=== PATIENT | male | born 1940 | race Caucasian/White ===

== ENCOUNTER 2018-09-12 05:43 | Inpatient (IN) ==
[2018-09-09 10:50] LABS: Basophils # 0.1 10*3/uL (0.0-0.2); Eosinophils # 0.3 10*3/uL (0.0-0.87); Eosinophils % 4.6 % (0.00-10.9); Hemoglobin 14.4 GM/DL (14.0-18.0); Immature Granulocytes % 0.4 %; Immature Granulocytes Absolute 0.03 #; Lymphocytes % 42.9 % (21.2-54.2); Mean Corpuscular Volume 94.1 FL (87-102); Mean Platelet Volume 10.8 FL (9.6-12.0); Monocytes % 10.5 % (1.7-12.7); Neutrophils % 40.6 % (38.7-73.9); Platelet Count 200 T/CUMM (130-400); Red Blood Count 4.78 MC/CUMM (3.8-5.5); Red Cell Distribution Width 13.3 % (9.3-17.3); White Blood Count 6.9 T/CUMM (4-12)
[2018-09-09 10:58] LABS: INR 0.9; Partial Thromboplastin Time 24.9 SECS (0-40)
[2018-09-09 11:11] LABS: Albumin 3.8 G/DL (3.4-5.0); Bilirubin,Total 0.5 MG/DL (0.2-1.0); Osmolality,Calculated 283.3 MOS/KG (273-304); Total Protein 7.1 G/DL (6.4-8.3)
[2018-09-12] MEDS ORDERED: LACTATED RINGERS 1,000 ML IV SCH (06:00)
[2018-09-12] MEDS ORDERED: ceFAZolin 1,000 MG in SYRINGE 1 EACH IV ONE (06:30)
[2018-09-12] MEDS ORDERED: VANCOMYCIN INJ 1,000 MG in SODIUM CHLORIDE 0.9% 250 ML IV ONE ×2 (06:30→18:58)
[2018-09-12] MEDS ORDERED: VANCOMYCIN 1,000 MG VIAL ONE (08:43)
[2018-09-12] MEDS ORDERED: ceFAZolin 1,000 MG VIAL ONE (08:43)
[2018-09-12] MEDS ORDERED: BACITRACIN OINT 0.9 GM PACK TOP ONE (08:57)
[2018-09-12] MEDS ORDERED: BUPIVACAINE 0.5% 50 ML VIAL ONE (09:04)
[2018-09-12] MEDS ORDERED: DEXAMETHASONE 4 MG/1 ML VIAL ONE ×2 (09:04→11:17)
[2018-09-12] MEDS ORDERED: EPINEPHrine 1 MG/ML VIAL ONE (09:04)
[2018-09-12] MEDS ORDERED: fentaNYL 100 MCG/2 ML VIAL ONE ×2 (09:05→11:17)
[2018-09-12] MEDS ORDERED: MIDAZOLAM 2 MG/2 ML VIAL ONE ×2 (09:05→11:17)
[2018-09-12] MEDS ORDERED: diphenhydrAMINE CAP 25 MG CAPSULE PO PRN (10:57)
[2018-09-12] MEDS ORDERED: MAGNESIUM HYDROXIDE SUSP 30 ML UDCUP PO PRN (10:57)
[2018-09-12] MEDS ORDERED: ONDANSETRON 4 MG/2 ML VIAL IV PRN (10:57)
[2018-09-12] MEDS ORDERED: MORPHINE 4 MG/1 ML VIAL IV PRN ×2 (10:57)
[2018-09-12] MEDS ORDERED: PROPOFOL 200 MG/20 ML VIAL IV ONE (11:16)
[2018-09-12] MEDS ORDERED: BUPIVACAINE SPINAL 0.75% 2 ML AMP SPINAL ONE (11:16)
[2018-09-12] MEDS ORDERED: TRANEXAMIC ACID 1,000 MG/10 ML VIAL ONE (11:17)
[2018-09-12] MEDS ORDERED: PHENYLEPHRINE 1 MG/10 ML SYRINGE IV ONE (11:17)
[2018-09-12] MEDS ORDERED: SODIUM CHLORIDE 0.9% 100 ML IV ONE (11:17)
[2018-09-12] MEDS ORDERED: KETOROLAC 30 MG/1 ML VIAL ONE (11:17)
[2018-09-12] MEDS ORDERED: KETAMINE 500 MG/10 ML VIAL ONE (11:17)
[2018-09-12] MEDS ORDERED: ONDANSETRON 4 MG/2 ML VIAL ONE (11:17)
[2018-09-12] MEDS ORDERED: LACTATED RINGERS 1,000 ML IV ONE (11:17)
[2018-09-12] MEDS: LACTATED RINGERS 1,000 ML IV SCH ×2 (16:08→22:24)
[2018-09-12] MEDS ORDERED: DEXTROSE 50% 25 GM/50 ML VIAL IV PRN (16:51)
[2018-09-12] MEDS ORDERED: GLUCAGON 1 MG VIAL IM PRN (16:51)
[2018-09-12] MEDS: KETOROLAC 15 MG/1 ML VIAL IV SCH ×2 (16:53→23:53)
[2018-09-12] MEDS: ACETAMINOPHEN 500 MG TABLET PO SCH ×2 (16:54→22:28)
[2018-09-12] MEDS: ceFAZolin 2,000 MG in PREMIX 1 EACH IV SCH (17:40)
[2018-09-12] MEDS: INSULIN REGULAR 100 UNIT/ML SUBCUT SCH (21:00)
[2018-09-12] MEDS: CHOLECALCIFEROL 1,000 UNIT TABLET PO SCH (22:25)
[2018-09-12] MEDS: CYANOCOBALAMIN 500 MCG TABLET PO SCH (22:25)
[2018-09-12] MEDS: ATORVASTATIN 20 MG TABLET PO SCH (22:26)
[2018-09-12] MEDS: DOCUSATE SODIUM 100 MG CAPSULE PO SCH (22:26)
[2018-09-12] MEDS: AMITRIPTYLINE 25 MG TABLET PO SCH (22:26)
[2018-09-13] MEDS: ceFAZolin 2,000 MG in PREMIX 1 EACH IV SCH (02:13)
[2018-09-13] MEDS: ACETAMINOPHEN 500 MG TABLET PO SCH ×2 (02:54→10:02)
[2018-09-13] MEDS: KETOROLAC 15 MG/1 ML VIAL IV SCH ×2 (04:21→11:25)
[2018-09-13] MEDS: FONDAPARINUX 2.5 MG/0.5 ML SYRINGE SUBCUT SCH (04:26)
[2018-09-13 05:38] LABS: Basophils % 0.1 % (0.0-0.8); Hematocrit 33.3 VOL% (42.0-52.0); Hemoglobin 10.7 GM/DL (14.0-18.0); Immature Granulocytes % 0.8 %; Immature Granulocytes Absolute 0.11 #; Lymphocytes # 1.3 10*3/uL (1.4-4.0); Lymphocytes % 9.1 % (21.2-54.2); Mean Corpuscular HGB Conc 32.1 GM/DL (32-36); Mean Corpuscular Volume 93.3 FL (87-102); Mean Platelet Volume 11.2 FL (9.6-12.0); Monocytes % 11.9 % (1.7-12.7); Neutrophils % 78.1 % (38.7-73.9); Platelet Count 162 T/CUMM (130-400); Red Blood Count 3.57 MC/CUMM (3.8-5.5); Red Cell Distribution Width 13.5 % (9.3-17.3); White Blood Count 14.6 T/CUMM (4-12)
[2018-09-13 06:17] LABS: Osmolality,Calculated 287.3 MOS/KG (273-304)
[2018-09-13] MEDS: INSULIN REGULAR 100 UNIT/ML SUBCUT SCH ×2 (09:57→11:35)
[2018-09-13] MEDS: DOCUSATE SODIUM 100 MG CAPSULE PO SCH ×2 (10:02→20:44)
[2018-09-13] MEDS: SODIUM CHLORIDE 0.9% 1,000 ML IV SCH (11:25)
[2018-09-13] MEDS ORDERED: KETOROLAC 15 MG/1 ML VIAL IV SCH (11:30)
[2018-09-13] MEDS ORDERED: TUBERCULIN SKIN TEST 0.1 ML SYRINGE INTRADERM ONE (13:20)
[2018-09-13] MEDS ORDERED: CELECOXIB 200 MG CAPSULE PO SCH (16:58)
[2018-09-13] MEDS: CHOLECALCIFEROL 1,000 UNIT TABLET PO SCH (20:44)
[2018-09-13] MEDS: ATORVASTATIN 20 MG TABLET PO SCH (20:44)
[2018-09-13] MEDS: CYANOCOBALAMIN 500 MCG TABLET PO SCH (20:44)
[2018-09-13] MEDS: CLOPIDOGREL 75 MG TABLET PO SCH (20:44)
[2018-09-13] MEDS: AMITRIPTYLINE 25 MG TABLET PO SCH (20:44)
[2018-09-13 23:23] LABS: Apearance,Urine CLEAR (Clear); Bilirubin,Urine Negative (Negative); Blood, Urine Negative (Negative); Glucose,Urine (UA) Negative (Negative); Hyaline Casts,Urine 7 /LPF (0-3); Ketones,Urine 5 mg/dL (Negative); Mucus,Urine Occasional /LPF (Occasional); Nitrite,Urine Negative (Negative); Protein,Urine Negative; RBC,Urine 6 /HPF (0-4); Squamous Epithelial Cell,Urine Occasional /HPF (0-10); Urine Color Yellow (Yellow); Urine Specific Gravity 1.029 (1.001-1.035); Urine Urobilinogen < 2.0 EU/DL (0.2-1.0); WBC,Urine 3 /HPF (0-6)
[2018-09-14] MEDS: SODIUM CHLORIDE 0.9% 1,000 ML IV SCH (00:45)
[2018-09-14 05:15] LABS: Basophils % 0.4 % (0.0-0.8); Eosinophils # 0.1 10*3/uL (0.0-0.87); Eosinophils % 1.1 % (0.00-10.9); Hematocrit 29.5 VOL% (42.0-52.0); Hemoglobin 9.7 GM/DL (14.0-18.0); Immature Granulocytes % 0.4 %; Immature Granulocytes Absolute 0.04 #; Lymphocytes # 2.6 10*3/uL (1.4-4.0); Lymphocytes % 23.3 % (21.2-54.2); Mean Corpuscular HGB Conc 32.9 GM/DL (32-36); Mean Corpuscular Volume 92.8 FL (87-102); Mean Platelet Volume 11.7 FL (9.6-12.0); Monocytes % 13.3 % (1.7-12.7); Neutrophils % 61.5 % (38.7-73.9); Platelet Count 146 T/CUMM (130-400); Red Blood Count 3.18 MC/CUMM (3.8-5.5); Red Cell Distribution Width 13.7 % (9.3-17.3); White Blood Count 11.3 T/CUMM (4-12)
[2018-09-14 05:27] LABS: Osmolality,Calculated 293.7 MOS/KG (273-304)
[2018-09-14 05:30] LABS: Risk Ratio 1.81; VLDL CHOLESTEROL 10.6 MG/DL
[2018-09-14] MEDS: FONDAPARINUX 2.5 MG/0.5 ML SYRINGE SUBCUT SCH (05:32)
[2018-09-14] MEDS: LACTATED RINGERS 1,000 ML IV SCH (08:03)
[2018-09-14] MEDS: DOCUSATE SODIUM 100 MG CAPSULE PO SCH ×2 (09:50→20:38)
[2018-09-14] MEDS: CYANOCOBALAMIN 500 MCG TABLET PO SCH (20:36)
[2018-09-14] MEDS: ATORVASTATIN 20 MG TABLET PO SCH (20:38)
[2018-09-14] MEDS: CHOLECALCIFEROL 1,000 UNIT TABLET PO SCH (20:38)
[2018-09-14] MEDS: CLOPIDOGREL 75 MG TABLET PO SCH (20:38)
[2018-09-14] MEDS: AMITRIPTYLINE 25 MG TABLET PO SCH (20:38)
[2018-09-15 03:58] LABS: Basophils # 0.1 10*3/uL (0.0-0.2); Basophils % 0.7 % (0.0-0.8); Eosinophils # 0.7 10*3/uL (0.0-0.87); Eosinophils % 5.1 % (0.00-10.9); Hematocrit 35.1 VOL% (42.0-52.0); Hemoglobin 11.4 GM/DL (14.0-18.0); Immature Granulocytes % 0.6 %; Immature Granulocytes Absolute 0.08 #; Lymphocytes # 3.3 10*3/uL (1.4-4.0); Lymphocytes % 25.7 % (21.2-54.2); Mean Corpuscular HGB Conc 32.5 GM/DL (32-36); Mean Corpuscular Volume 94.1 FL (87-102); Mean Platelet Volume 11.6 FL (9.6-12.0); Monocytes % 14.5 % (1.7-12.7); Neutrophils % 53.4 % (38.7-73.9); Platelet Count 171 T/CUMM (130-400); Red Blood Count 3.73 MC/CUMM (3.8-5.5); White Blood Count 12.9 T/CUMM (4-12)
[2018-09-15] MEDS: FONDAPARINUX 2.5 MG/0.5 ML SYRINGE SUBCUT SCH (05:16)
[2018-09-15] MEDS: DOCUSATE SODIUM 100 MG CAPSULE PO SCH (08:15)
[2018-09-15 11:49] VITALS: BP 127/64
== END 2018-09-15 14:00 | disposition swing bed (61) | DRG 470 ==
LOC: N.PREADM 05:43 → N.SDSINP 05:45 → N.3E 15:30
PROVIDERS: ADMIT Orthopaedic Surgery; ATTEND Orthopaedic Surgery

== ENCOUNTER 2019-07-26 18:04 | Inpatient (IN) ==
[2019-07-26] MEDS ORDERED: MORPHINE 4 MG/1 ML VIAL IV STA ×2 (19:15→20:04)
[2019-07-26] MEDS ORDERED: ONDANSETRON 4 MG/2 ML VIAL IV ONE (19:15)
[2019-07-26 19:40] LABS: Basophils # 0.1 10*3/uL (0.0-0.2); Basophils % 0.5 % (0.0-0.8); Eosinophils # 0.1 10*3/uL (0.0-0.87); Eosinophils % 0.8 % (0.00-10.9); Hematocrit 45.4 VOL% (42.0-52.0); Hemoglobin 14.8 GM/DL (14.0-18.0); Immature Granulocytes % 0.5 %; Immature Granulocytes Absolute 0.07 #; Lymphocytes # 1.4 10*3/uL (1.4-4.0); Mean Corpuscular HGB Conc 32.6 GM/DL (32-36); Mean Corpuscular Volume 94.8 FL (87-102); Mean Platelet Volume 10.6 FL (9.6-12.0); Monocytes % 10.5 % (1.7-12.7); Neutrophils % 76.7 % (38.7-73.9); Platelet Count 192 T/CUMM (130-400); Red Blood Count 4.79 MC/CUMM (3.8-5.5); Red Cell Distribution Width 13.2 % (9.3-17.3); White Blood Count 12.9 T/CUMM (4-12)
[2019-07-26 19:57] LABS: PT Patient Result 10.7 SECS (9.8-11.9); Partial Thromboplastin Time 27.7 SECS (23.9-33.8)
[2019-07-26 20:00] LABS: Albumin 3.6 G/DL (3.4-5.0); Bilirubin,Total 0.6 MG/DL (0.2-1.0); Calcium 8.9 MG/DL (8.5-10.1); Osmolality,Calculated 281.4 MOS/KG (273-304); Total Protein 7.1 G/DL (6.4-8.3)
[2019-07-26] MEDS: ALUM/MAG/SIMETH/LIDO VISC 1:1 30 ML BOTTLE PO STA ×2 (20:54→21:05)
[2019-07-26] MEDS ORDERED: ZALEPLON 5 MG CAPSULE PO PRN (21:03)
[2019-07-26] MEDS ORDERED: ACETAMINOPHEN 325 MG TABLET PO PRN (21:03)
[2019-07-26] MEDS ORDERED: GLUCAGON 1 MG VIAL IM PRN (21:03)
[2019-07-26] MEDS ORDERED: DEXTROSE 10% 250 ML BAG IV PRN (21:03)
[2019-07-26] MEDS: CYANOCOBALAMIN 500 MCG TABLET PO SCH (22:34)
[2019-07-26] MEDS: CHOLECALCIFEROL 1,000 UNIT TABLET PO SCH (22:34)
[2019-07-26] MEDS: ATORVASTATIN 20 MG TABLET PO SCH (22:34)
[2019-07-26] MEDS: AMITRIPTYLINE 25 MG TABLET PO SCH (22:34)
[2019-07-27] MEDS ORDERED: ceFAZolin 2,000 MG in PREMIX 1 EACH IV ONE (07:12)
[2019-07-27 08:24] LABS: Apearance,Urine CLEAR (Clear); Bilirubin,Urine Negative (Negative); Blood, Urine Negative (Negative); Glucose,Urine (UA) Negative (Negative); Ketones,Urine 5 mg/dL (Negative); Mucus,Urine Occasional /LPF (Occasional); Nitrite,Urine Negative (Negative); Protein,Urine 30 MG/DL; RBC,Urine 15 /HPF (0-4); Squamous Epithelial Cell,Urine Occasional /HPF (0-10); Urine Color Yellow (Yellow); Urine Specific Gravity 1.028 (1.001-1.035); WBC,Urine 52 /HPF (0-6)
[2019-07-27 08:51] LABS: Basophils # 0.1 10*3/uL (0.0-0.2); Basophils % 0.8 % (0.0-0.8); Eosinophils # 0.5 10*3/uL (0.0-0.87); Eosinophils % 4.5 % (0.00-10.9); Hematocrit 42.8 VOL% (42.0-52.0); Hemoglobin 13.9 GM/DL (14.0-18.0); Immature Granulocytes % 0.4 %; Immature Granulocytes Absolute 0.05 #; Lymphocytes # 2.5 10*3/uL (1.4-4.0); Mean Corpuscular HGB Conc 32.5 GM/DL (32-36); Mean Corpuscular Volume 92.8 FL (87-102); Mean Platelet Volume 11.1 FL (9.6-12.0); Monocytes % 13.3 % (1.7-12.7); Platelet Count 181 T/CUMM (130-400); Red Blood Count 4.61 MC/CUMM (3.8-5.5); Red Cell Distribution Width 13.5 % (9.3-17.3); White Blood Count 11.5 T/CUMM (4-12)
[2019-07-27] MEDS: PANTOPRAZOLE 40 MG TABLET PO SCH (08:53)
[2019-07-27 09:10] LABS: Albumin 3.4 G/DL (3.4-5.0); Bilirubin,Total 0.9 MG/DL (0.2-1.0); Calcium 8.7 MG/DL (8.5-10.1); Osmolality,Calculated 275.7 MOS/KG (273-304); Total Protein 6.8 G/DL (6.4-8.3)
[2019-07-27] MEDS ORDERED: TUBERCULIN SKIN TEST 0.1 ML SYRINGE INTRADERM ONE (10:57)
[2019-07-27] MEDS ORDERED: SUGAMMADEX 200 MG/2 ML VIAL IV ONE (12:29)
[2019-07-27] MEDS ORDERED: KETOROLAC 15 MG/1 ML VIAL IV PRN (12:45)
[2019-07-27] MEDS ORDERED: MAGNESIUM HYDROXIDE SUSP 30 ML UDCUP PO PRN (12:45)
[2019-07-27] MEDS ORDERED: LIDOCAINE 2% 5 ML VIAL ONE (12:57)
[2019-07-27] MEDS ORDERED: propofoL 200 MG/20 ML VIAL IV ONE (12:57)
[2019-07-27] MEDS ORDERED: SEVOFLURANE 1 UNIT/15 MINUTE INH ONE (12:57)
[2019-07-27] MEDS ORDERED: ROCURONIUM 100 MG/10 ML VIAL IV ONE (12:58)
[2019-07-27] MEDS ORDERED: ACETAMINOPHEN 1,000 MG/100 ML VIAL IV ONE (12:58)
[2019-07-27] MEDS ORDERED: fentaNYL 100 MCG/2 ML VIAL ONE (12:58)
[2019-07-27] MEDS ORDERED: ONDANSETRON 4 MG/2 ML VIAL ONE (12:58)
[2019-07-27] MEDS ORDERED: SUCCINYLCHOLINE 200 MG/10 ML VIAL ONE (12:58)
[2019-07-27] MEDS ORDERED: PHENYLEPHRINE 1 MG/10 ML SYRINGE IV ONE (12:58)
[2019-07-27] MEDS: LACTATED RINGERS 1,000 ML IV SCH ×2 (13:51→22:40)
[2019-07-27] MEDS: ceFAZolin 2,000 MG in PREMIX 1 EACH IV SCH (17:07)
[2019-07-27] MEDS: CLOPIDOGREL 75 MG TABLET PO SCH (20:42)
[2019-07-27] MEDS: CHOLECALCIFEROL 1,000 UNIT TABLET PO SCH (20:43)
[2019-07-27] MEDS: ATORVASTATIN 20 MG TABLET PO SCH (20:43)
[2019-07-27] MEDS: CYANOCOBALAMIN 500 MCG TABLET PO SCH (20:43)
[2019-07-27] MEDS: AMITRIPTYLINE 25 MG TABLET PO SCH (20:43)
[2019-07-27] MEDS: DOCUSATE SODIUM 100 MG CAPSULE PO SCH (20:44)
[2019-07-28] MEDS: ceFAZolin 2,000 MG in PREMIX 1 EACH IV SCH (00:35)
[2019-07-28 06:52] LABS: Basophils # 0.1 10*3/uL (0.0-0.2); Basophils % 0.6 % (0.0-0.8); Eosinophils # 0.6 10*3/uL (0.0-0.87); Eosinophils % 4.7 % (0.00-10.9); Hematocrit 40.3 VOL% (42.0-52.0); Hemoglobin 13.2 GM/DL (14.0-18.0); Immature Granulocytes % 0.3 %; Immature Granulocytes Absolute 0.04 #; Lymphocytes # 2.1 10*3/uL (1.4-4.0); Lymphocytes % 16.8 % (21.2-54.2); Mean Corpuscular HGB Conc 32.8 GM/DL (32-36); Mean Corpuscular Volume 93.1 FL (87-102); Mean Platelet Volume 10.9 FL (9.6-12.0); Monocytes % 13.3 % (1.7-12.7); Neutrophils % 64.3 % (38.7-73.9); Platelet Count 151 T/CUMM (130-400); Red Blood Count 4.33 MC/CUMM (3.8-5.5); Red Cell Distribution Width 13.3 % (9.3-17.3); White Blood Count 12.4 T/CUMM (4-12)
[2019-07-28 08:11] LABS: Calcium 8.2 MG/DL (8.5-10.1)
[2019-07-28 08:12] LABS: Osmolality,Calculated 273.8 MOS/KG (273-304)
[2019-07-28] MEDS: PANTOPRAZOLE 40 MG TABLET PO SCH (08:14)
[2019-07-28] MEDS: LACTATED RINGERS 1,000 ML IV SCH (08:15)
[2019-07-28] MEDS: DOCUSATE SODIUM 100 MG CAPSULE PO SCH ×2 (08:16→22:11)
[2019-07-28] MEDS: MORPHINE 4 MG/1 ML VIAL IV PRN (15:15)
[2019-07-28] MEDS: ONDANSETRON 4 MG/2 ML VIAL IV PRN (15:41)
[2019-07-28] MEDS: AMITRIPTYLINE 25 MG TABLET PO SCH (21:21)
[2019-07-28] MEDS: CHOLECALCIFEROL 1,000 UNIT TABLET PO SCH (21:21)
[2019-07-28] MEDS: CYANOCOBALAMIN 500 MCG TABLET PO SCH (21:21)
[2019-07-28] MEDS: CLOPIDOGREL 75 MG TABLET PO SCH (21:22)
[2019-07-28] MEDS: ATORVASTATIN 20 MG TABLET PO SCH (21:22)
[2019-07-29 06:31] LABS: Basophils # 0.1 10*3/uL (0.0-0.2); Basophils % 0.7 % (0.0-0.8); Eosinophils # 0.4 10*3/uL (0.0-0.87); Eosinophils % 3.2 % (0.00-10.9); Hematocrit 41.1 VOL% (42.0-52.0); Hemoglobin 13.1 GM/DL (14.0-18.0); Immature Granulocytes % 0.4 %; Immature Granulocytes Absolute 0.05 #; Lymphocytes # 1.6 10*3/uL (1.4-4.0); Lymphocytes % 12.7 % (21.2-54.2); Mean Corpuscular HGB Conc 31.9 GM/DL (32-36); Mean Corpuscular Volume 95.8 FL (87-102); Monocytes % 12.8 % (1.7-12.7); Neutrophils % 70.2 % (38.7-73.9); Platelet Count 163 T/CUMM (130-400); Red Blood Count 4.29 MC/CUMM (3.8-5.5); Red Cell Distribution Width 13.2 % (9.3-17.3); White Blood Count 12.2 T/CUMM (4-12)
[2019-07-29 06:52] LABS: Calcium 8.7 MG/DL (8.5-10.1)
[2019-07-29] MEDS: DOCUSATE SODIUM 100 MG CAPSULE PO SCH ×2 (08:30→21:42)
[2019-07-29] MEDS: PANTOPRAZOLE 40 MG TABLET PO SCH (08:30)
[2019-07-29] MEDS: MORPHINE 4 MG/1 ML VIAL IV PRN (13:55)
[2019-07-29] MEDS: ONDANSETRON 4 MG/2 ML VIAL IV PRN (13:55)
[2019-07-29] MEDS: ATORVASTATIN 20 MG TABLET PO SCH (21:42)
[2019-07-29] MEDS: CYANOCOBALAMIN 500 MCG TABLET PO SCH (21:42)
[2019-07-29] MEDS: CHOLECALCIFEROL 1,000 UNIT TABLET PO SCH (21:42)
[2019-07-29] MEDS: CLOPIDOGREL 75 MG TABLET PO SCH (21:42)
[2019-07-29] MEDS: AMITRIPTYLINE 25 MG TABLET PO SCH (21:42)
[2019-07-30 05:55] LABS: Basophils # 0.1 10*3/uL (0.0-0.2); Basophils % 0.5 % (0.0-0.8); Eosinophils # 0.5 10*3/uL (0.0-0.87); Eosinophils % 4.3 % (0.00-10.9); Hematocrit 39.4 VOL% (42.0-52.0); Hemoglobin 13.1 GM/DL (14.0-18.0); Immature Granulocytes % 0.3 %; Immature Granulocytes Absolute 0.04 #; Lymphocytes # 1.7 10*3/uL (1.4-4.0); Lymphocytes % 14.8 % (21.2-54.2); Mean Corpuscular HGB Conc 33.2 GM/DL (32-36); Mean Corpuscular Volume 92.9 FL (87-102); Mean Platelet Volume 11.3 FL (9.6-12.0); Monocytes % 15.6 % (1.7-12.7); Neutrophils % 64.5 % (38.7-73.9); Platelet Count 180 T/CUMM (130-400); Red Blood Count 4.24 MC/CUMM (3.8-5.5); Red Cell Distribution Width 13.2 % (9.3-17.3); White Blood Count 11.6 T/CUMM (4-12)
[2019-07-30 06:14] LABS: Calcium 8.8 MG/DL (8.5-10.1); Osmolality,Calculated 271.1 MOS/KG (273-304)
[2019-07-30 06:58] LABS: Band Neutrophils 6 % (0-10); Eosinophils 5 % (0-10); Lymphocytes 15 % (20-55); Macrocytosis Slight; Platelet Estimate Normal; Segmented Neutrophils 56 % (50-85); Total Cells Counted 100
[2019-07-30] MEDS: DOCUSATE SODIUM 100 MG CAPSULE PO SCH ×2 (09:09→21:43)
[2019-07-30] MEDS: PANTOPRAZOLE 40 MG TABLET PO SCH (09:14)
[2019-07-30] MEDS: ONDANSETRON 4 MG/2 ML VIAL IV PRN (09:14)
[2019-07-30] MEDS: CYANOCOBALAMIN 500 MCG TABLET PO SCH (21:44)
[2019-07-30] MEDS: CHOLECALCIFEROL 1,000 UNIT TABLET PO SCH (21:44)
[2019-07-30] MEDS: CLOPIDOGREL 75 MG TABLET PO SCH (21:44)
[2019-07-30] MEDS: AMITRIPTYLINE 25 MG TABLET PO SCH (21:44)
[2019-07-30] MEDS: ZALEPLON 5 MG CAPSULE PO SCH (21:44)
[2019-07-30] MEDS: ATORVASTATIN 20 MG TABLET PO SCH (21:44)
[2019-07-31] MEDS: DOCUSATE SODIUM 100 MG CAPSULE PO SCH ×2 (10:01→21:38)
[2019-07-31] MEDS: SODIUM CHLORIDE 0.9% 1,000 ML IV SCH ×2 (10:01→23:33)
[2019-07-31] MEDS: PANTOPRAZOLE 40 MG TABLET PO SCH (10:01)
[2019-07-31] MEDS: ONDANSETRON 4 MG/2 ML VIAL IV PRN (10:05)
[2019-07-31] MEDS: MORPHINE 4 MG/1 ML VIAL IV PRN ×2 (10:08→14:29)
[2019-07-31] MEDS: CYANOCOBALAMIN 500 MCG TABLET PO SCH (21:38)
[2019-07-31] MEDS: ATORVASTATIN 20 MG TABLET PO SCH (21:39)
[2019-07-31] MEDS: CLOPIDOGREL 75 MG TABLET PO SCH (21:39)
[2019-07-31] MEDS: ZALEPLON 5 MG CAPSULE PO SCH (21:39)
[2019-07-31] MEDS: AMITRIPTYLINE 25 MG TABLET PO SCH (21:39)
[2019-07-31] MEDS: CHOLECALCIFEROL 1,000 UNIT TABLET PO SCH (21:39)
[2019-08-01 06:11] LABS: Basophils # 0.1 10*3/uL (0.0-0.2); Eosinophils # 0.4 10*3/uL (0.0-0.87); Eosinophils % 4.8 % (0.00-10.9); Hematocrit 35.1 VOL% (42.0-52.0); Hemoglobin 11.5 GM/DL (14.0-18.0); Immature Granulocytes % 0.4 %; Immature Granulocytes Absolute 0.03 #; Lymphocytes # 1.6 10*3/uL (1.4-4.0); Lymphocytes % 20.8 % (21.2-54.2); Mean Corpuscular HGB Conc 32.8 GM/DL (32-36); Mean Corpuscular Volume 93.6 FL (87-102); Mean Platelet Volume 10.8 FL (9.6-12.0); Platelet Count 206 T/CUMM (130-400); Red Blood Count 3.75 MC/CUMM (3.8-5.5); Red Cell Distribution Width 13.2 % (9.3-17.3); White Blood Count 7.6 T/CUMM (4-12)
[2019-08-01 06:22] LABS: Calcium 8.8 MG/DL (8.5-10.1); Osmolality,Calculated 273.8 MOS/KG (273-304)
[2019-08-01 06:37] LABS: Eosinophils 5 % (0-10); Hypochromasia 1+; Lymphocytes 26 % (20-55); Platelet Estimate Adequate; Segmented Neutrophils 58 % (50-85); Total Cells Counted 100
[2019-08-01] MEDS: POTASSIUM CHLORIDE 20 MEQ TABLET PO SCH ×2 (09:07→11:43)
[2019-08-01] MEDS: PANTOPRAZOLE 40 MG TABLET PO SCH (09:07)
[2019-08-01] MEDS: DOCUSATE SODIUM 100 MG CAPSULE PO SCH (09:07)
[2019-08-01] MEDS: SODIUM CHLORIDE 0.9% 1,000 ML IV SCH (11:38)
[2019-08-01 11:47] VITALS: BP 115/65
== END 2019-08-01 14:57 | DRG 482 ==
LOC: EDBD → EDUNIT# → N.ED 18:04 → SUATTDRO 21:03 → N.EDINP 21:03 → N.3E 21:27
PROVIDERS: ADMIT Internal Medicine; ATTEND Internal Medicine Cardiovascular Disease

== ENCOUNTER 2020-01-23 06:19 | Inpatient (IN) ==
[2020-01-18 13:19] LABS: Basophils # 0.1 10*3/uL (0.0-0.2); Basophils % 0.6 % (0.0-0.8); Eosinophils # 0.3 10*3/uL (0.0-0.87); Eosinophils % 3.9 % (0.00-10.9); Hematocrit 43.5 VOL% (42.0-52.0); Hemoglobin 14.2 GM/DL (14.0-18.0); Immature Granulocytes % 0.3 %; Immature Granulocytes Absolute 0.02 #; Lymphocytes # 2.9 10*3/uL (1.4-4.0); Lymphocytes % 37.5 % (21.2-54.2); Mean Corpuscular HGB Conc 32.6 GM/DL (32-36); Mean Corpuscular Volume 92.8 FL (87-102); Monocytes % 11.1 % (1.7-12.7); Neutrophils % 46.6 % (38.7-73.9); Platelet Count 231 T/CUMM (130-400); Red Blood Count 4.69 MC/CUMM (3.8-5.5); Red Cell Distribution Width 13.4 % (9.3-17.3); White Blood Count 7.7 T/CUMM (4-12)
[2020-01-18 13:30] LABS: INR 0.9; Partial Thromboplastin Time 26.8 SECS (23.9-33.8)
[2020-01-18 13:32] LABS: Albumin 3.6 G/DL (3.4-5.0); Bilirubin,Total 0.6 MG/DL (0.2-1.0); Calcium 9.2 MG/DL (8.5-10.1); Osmolality,Calculated 282.1 MOS/KG (273-304)
[2020-01-19 13:31] LABS: Bilirubin,Urine Negative (Negative); Blood, Urine Negative (Negative); Glucose,Urine (UA) Negative (Negative); Hyaline Casts,Urine 62 /LPF (0-3); Ketones,Urine Negative (Negative); Mucus,Urine Moderate /LPF (Occasional); Nitrite,Urine Negative (Negative); Protein,Urine Negative; RBC,Urine 1 /HPF (0-4); Urine Appearance CLEAR (Clear); Urine Color Yellow (Yellow); Urine Specific Gravity 1.021 (1.001-1.035); WBC,Urine 1 /HPF (0-6)
[~2020-01-23 06:19] MED LIST: VANCOMYCIN INJ 1,000 MG in SODIUM CHLORIDE 0.9% 250 ML IV ONE; ceFAZolin 1,000 MG in SYRINGE 1 EACH IV ONE
[2020-01-23] MEDS ORDERED: LACTATED RINGERS 1,000 ML IV SCH (06:30)
[2020-01-23] MEDS ORDERED: ROPIVACAINE 0.5% 30 ML VIAL ONE (06:30)
[2020-01-23] MEDS ORDERED: LIDOCAINE 1% 5 ML VIAL ONE (06:30)
[2020-01-23] MEDS ORDERED: GABAPENTIN 400 MG CAPSULE PO ONE (06:50)
[2020-01-23] MEDS ORDERED: ACETAMINOPHEN 500 MG TABLET PO ONE (06:50)
[2020-01-23] MEDS ORDERED: FAMOTIDINE 20 MG TABLET PO ONE (06:50)
[2020-01-23] MEDS ORDERED: DIAZEPAM 5 MG TABLET PO ONE (06:50)
[2020-01-23] MEDS ORDERED: BACITRACIN OINT 0.9 GM PACK TOP ONE (08:11)
[2020-01-23] MEDS ORDERED: MAGNESIUM HYDROXIDE SUSP 30 ML UDCUP PO PRN (08:49)
[2020-01-23] MEDS ORDERED: ONDANSETRON 4 MG/2 ML VIAL IV PRN (08:49)
[2020-01-23] MEDS ORDERED: MORPHINE 4 MG/1 ML VIAL IV PRN ×2 (08:49)
[2020-01-23] MEDS ORDERED: propofoL 200 MG/20 ML VIAL IV ONE (09:04)
[2020-01-23] MEDS ORDERED: fentaNYL 100 MCG/2 ML VIAL ONE (09:04)
[2020-01-23] MEDS ORDERED: MIDAZOLAM 2 MG/2 ML VIAL ONE (09:04)
[2020-01-23] MEDS ORDERED: TRANEXAMIC ACID 1,000 MG/10 ML VIAL ONE (09:04)
[2020-01-23] MEDS ORDERED: ACETAMINOPHEN 1,000 MG/100 ML VIAL IV ONE (09:05)
[2020-01-23] MEDS ORDERED: PHENYLEPHRINE 1 MG/10 ML SYRINGE IV ONE (09:05)
[2020-01-23] MEDS: PANTOPRAZOLE 40 MG TABLET PO SCH (13:01)
[2020-01-23] MEDS: ceFAZolin 2,000 MG in PREMIX 1 EACH IV SCH ×2 (13:02→19:59)
[2020-01-23] MEDS: ASCORBIC ACID 500 MG TABLET PO SCH (13:02)
[2020-01-23] MEDS: KETOROLAC 15 MG/1 ML VIAL IV SCH ×3 (13:02→23:59)
[2020-01-23] MEDS ORDERED: hydrALAZINE 20 MG/1 ML VIAL IV PRN (13:53)
[2020-01-23] MEDS: LACTATED RINGERS 1,000 ML IV SCH (20:04)
[2020-01-23] MEDS: CHOLECALCIFEROL 1,000 UNIT TABLET PO SCH (21:15)
[2020-01-23] MEDS: ATORVASTATIN 20 MG TABLET PO SCH (21:15)
[2020-01-23] MEDS: AMITRIPTYLINE 25 MG TABLET PO SCH (21:15)
[2020-01-23] MEDS: DOCUSATE SODIUM 100 MG CAPSULE PO SCH (21:15)
[2020-01-23] MEDS: CYANOCOBALAMIN 500 MCG TABLET PO SCH (22:04)
[2020-01-24] MEDS: LACTATED RINGERS 1,000 ML IV SCH (05:11)
[2020-01-24] MEDS: FONDAPARINUX 2.5 MG/0.5 ML SYRINGE SUBCUT SCH (05:11)
[2020-01-24] MEDS: KETOROLAC 15 MG/1 ML VIAL IV SCH (05:11)
[2020-01-24 05:19] LABS: Basophils # 0.1 10*3/uL (0.0-0.2); Basophils % 0.6 % (0.0-0.8); Eosinophils # 0.2 10*3/uL (0.0-0.87); Eosinophils % 2.6 % (0.00-10.9); Hematocrit 32.4 VOL% (42.0-52.0); Hemoglobin 10.6 GM/DL (14.0-18.0); Immature Granulocytes % 0.3 %; Immature Granulocytes Absolute 0.03 #; Lymphocytes # 2.1 10*3/uL (1.4-4.0); Lymphocytes % 23.6 % (21.2-54.2); Mean Corpuscular HGB Conc 32.7 GM/DL (32-36); Mean Corpuscular Volume 93.1 FL (87-102); Mean Platelet Volume 11.4 FL (9.6-12.0); Monocytes % 18.6 % (1.7-12.7); Neutrophils % 54.3 % (38.7-73.9); Platelet Count 154 T/CUMM (130-400); Red Blood Count 3.48 MC/CUMM (3.8-5.5); Red Cell Distribution Width 13.4 % (9.3-17.3); White Blood Count 8.9 T/CUMM (4-12)
[2020-01-24 05:39] LABS: Calcium 7.9 MG/DL (8.5-10.1)
[2020-01-24 05:43] LABS: Atypical Lymphocytes Few; Band Neutrophils 1 % (0-10); Eosinophils 4 % (0-10); Lymphocytes 22 % (20-55); Segmented Neutrophils 59 % (50-85); Total Cells Counted 100
[2020-01-24 05:44] LABS: Microcytosis Slight; Platelet Estimate Adequate
[2020-01-24] MEDS: PANTOPRAZOLE 40 MG TABLET PO SCH (10:32)
[2020-01-24] MEDS: DOCUSATE SODIUM 100 MG CAPSULE PO SCH ×2 (10:32→21:51)
[2020-01-24] MEDS: ASCORBIC ACID 500 MG TABLET PO SCH (11:04)
[2020-01-24] MEDS: AMITRIPTYLINE 25 MG TABLET PO SCH (21:51)
[2020-01-24] MEDS: ATORVASTATIN 20 MG TABLET PO SCH (21:51)
[2020-01-24] MEDS: CHOLECALCIFEROL 1,000 UNIT TABLET PO SCH (21:51)
[2020-01-24] MEDS: CYANOCOBALAMIN 500 MCG TABLET PO SCH (21:51)
[2020-01-25 04:57] LABS: Basophils # 0.1 10*3/uL (0.0-0.2); Basophils % 0.5 % (0.0-0.8); Eosinophils # 0.2 10*3/uL (0.0-0.87); Eosinophils % 1.4 % (0.00-10.9); Hematocrit 34.6 VOL% (42.0-52.0); Hemoglobin 11.4 GM/DL (14.0-18.0); Immature Granulocytes % 0.4 %; Immature Granulocytes Absolute 0.05 #; Lymphocytes # 2.3 10*3/uL (1.4-4.0); Lymphocytes % 19.8 % (21.2-54.2); Mean Corpuscular HGB Conc 32.9 GM/DL (32-36); Mean Corpuscular Volume 92.8 FL (87-102); Mean Platelet Volume 11.2 FL (9.6-12.0); Monocytes % 19.1 % (1.7-12.7); Neutrophils % 58.8 % (38.7-73.9); Platelet Count 159 T/CUMM (130-400); Red Blood Count 3.73 MC/CUMM (3.8-5.5); Red Cell Distribution Width 13.2 % (9.3-17.3); White Blood Count 11.6 T/CUMM (4-12)
[2020-01-25 05:23] LABS: Band Neutrophils 1 % (0-10); Lymphocytes 26 % (20-55); Platelet Estimate Normal; Risk Ratio 1.78; Segmented Neutrophils 56 % (50-85); Total Cells Counted 100; VLDL CHOLESTEROL 14.6 MG/DL
[2020-01-25] MEDS: FONDAPARINUX 2.5 MG/0.5 ML SYRINGE SUBCUT SCH (05:43)
[2020-01-25 06:38] LABS: Calcium 8.4 MG/DL (8.5-10.1)
[2020-01-25] MEDS: PANTOPRAZOLE 40 MG TABLET PO SCH (08:55)
[2020-01-25] MEDS: DOCUSATE SODIUM 100 MG CAPSULE PO SCH ×2 (08:55→21:01)
[2020-01-25] MEDS: ASCORBIC ACID 500 MG TABLET PO SCH (08:55)
[2020-01-25] MEDS: AMITRIPTYLINE 25 MG TABLET PO SCH (21:01)
[2020-01-25] MEDS: CYANOCOBALAMIN 500 MCG TABLET PO SCH (21:02)
[2020-01-25] MEDS: CHOLECALCIFEROL 1,000 UNIT TABLET PO SCH (21:02)
[2020-01-25] MEDS: ATORVASTATIN 20 MG TABLET PO SCH (21:02)
[2020-01-26 06:05] LABS: Basophils % 0.3 % (0.0-0.8); Eosinophils # 0.1 10*3/uL (0.0-0.87); Eosinophils % 0.8 % (0.00-10.9); Hematocrit 32.3 VOL% (42.0-52.0); Hemoglobin 10.9 GM/DL (14.0-18.0); Immature Granulocytes % 0.3 %; Immature Granulocytes Absolute 0.04 #; Lymphocytes # 1.8 10*3/uL (1.4-4.0); Lymphocytes % 15.4 % (21.2-54.2); Mean Corpuscular HGB Conc 33.7 GM/DL (32-36); Mean Corpuscular Volume 91.2 FL (87-102); Mean Platelet Volume 11.1 FL (9.6-12.0); Monocytes % 14.9 % (1.7-12.7); Neutrophils % 68.3 % (38.7-73.9); Platelet Count 157 T/CUMM (130-400); Red Blood Count 3.54 MC/CUMM (3.8-5.5); Red Cell Distribution Width 13.1 % (9.3-17.3); White Blood Count 11.7 T/CUMM (4-12)
[2020-01-26] MEDS: FONDAPARINUX 2.5 MG/0.5 ML SYRINGE SUBCUT SCH (06:17)
[2020-01-26 07:42] VITALS: BP 143/80
[2020-01-26] MEDS: PANTOPRAZOLE 40 MG TABLET PO SCH (08:46)
[2020-01-26] MEDS: ASCORBIC ACID 500 MG TABLET PO SCH (08:46)
[2020-01-26] MEDS: DOCUSATE SODIUM 100 MG CAPSULE PO SCH (08:46)
== END 2020-01-26 11:58 | disposition swing bed (61) | DRG 470 ==
LOC: N.OR 06:19 → N.SDSINP 06:22 → N.3E 08:35
PROVIDERS: ADMIT Orthopaedic Surgery; ATTEND Orthopaedic Surgery